=== PATIENT | female | born 1995 ===

== ENCOUNTER 2022-12-31 08:37 | Outpatient (CLI) | payer OTHER | END 2022-12-31 10:57 | disposition home or self-care (01) | LOC: PRENATAL 08:37 | PROVIDERS: ATTEND Obstetrics & Gynecology Maternal & Fetal Medicine | DX: O36.80X0 Pregnancy with inconclusive fetal viability, not applicable or unspecified (principal); Z36.82 Encounter for antenatal screening for nuchal translucency; Z36.9 Encounter for antenatal screening, unspecified; O34.80 Maternal care for other abnormalities of pelvic organs, unspecified trimester; Z3A.14 14 weeks gestation of pregnancy ==

== ENCOUNTER 2023-02-12 08:05 | Outpatient (CLI) | payer OTHER | END 2023-02-12 08:07 | disposition home or self-care (01) | LOC: PRENATAL 08:05 | PROVIDERS: ATTEND Obstetrics & Gynecology Maternal & Fetal Medicine | DX: O35.3XX0 Maternal care for (suspected) damage to fetus from viral disease in mother, not applicable or unspecified (principal); O44.00 Complete placenta previa NOS or without hemorrhage, unspecified trimester; O34.80 Maternal care for other abnormalities of pelvic organs, unspecified trimester; Z3A.20 20 weeks gestation of pregnancy ==

== ENCOUNTER 2023-04-04 08:36 | Outpatient (CLI) | payer OTHER | END 2023-04-04 08:37 | disposition home or self-care (01) | LOC: PRENATAL 08:36 | PROVIDERS: ATTEND Obstetrics & Gynecology Maternal & Fetal Medicine | DX: O26.849 Uterine size-date discrepancy, unspecified trimester (principal); O34.80 Maternal care for other abnormalities of pelvic organs, unspecified trimester; Z3A.28 28 weeks gestation of pregnancy ==

== ENCOUNTER 2023-05-02 08:42 | Outpatient (CLI) | payer OTHER | END 2023-05-02 08:43 | disposition home or self-care (01) | LOC: PRENATAL 08:42 | PROVIDERS: ATTEND Obstetrics & Gynecology Maternal & Fetal Medicine | DX: O26.849 Uterine size-date discrepancy, unspecified trimester (principal); O36.8199 Decreased fetal movements, unspecified trimester, other fetus; Z3A.32 32 weeks gestation of pregnancy ==

== ENCOUNTER 2023-06-26 10:04 | Inpatient (IN) | payer OTHER ==
[~2023-06-26] VITALS: Ht 162.6 cm; Wt 90.3 kg
[2023-06-26 11:43] LABS: PH,URINE 6.5 (5.0-8.0); URINE APPEARANCE Clear; URINE BILIRRUBIN Negative (NEGATIVE); URINE BLOOD Small; URINE COLOR Yellow; URINE GLUCOSE Negative (NEGATIVE); URINE LEUKOCYTE Negative; URINE NITRATE Negative; URINE PROTEIN Trace (NEGATIVE)
[2023-06-26 11:47] LABS: URINE BACTERIA 810.1 uL (0.0-1933); URINE EPITHELIAL CELLS 41.4 uL (0.0-38.8); URINE RBC 114.5 uL (0.0-20.8); URINE WBC 12.5 uL (0.0-23.2)
[2023-06-26 12:16] LABS: INR < 0.93; PARTIAL THROMBOPLASTIN TIME 29.3 SECONDS (22.0-34.0); PROTHROMBIN TIME 9.5 SECONDS (9.0-11.5)
[2023-06-26 12:22] LABS: HEMATOCRIT 37.1 % (36.0-45.00); HEMOGLOBIN 12.8 g/dL (12.0-15.00); MEAN CELL VOLUME 90.8 fL (80.00-100.00); MEAN CORPUSCULAR HEMOGLOBIN 31.4 pg (27.00-32.0); MEAN CORPUSCULAR HGB CONC 34.6 g/dl (32.0-36.0); PLATELET COUNT 230 K/uL (150-450); RED BLOOD COUNT 4.08 M/uL (4.00-6.00); RED CELL DISTRIBUTION WIDTH 14.1 % (11.5-14.5)
[2023-06-26] MEDS ORDERED: VITAMIN D-40010 MCG PO (12:43)
[2023-06-26] MEDS ORDERED: VITAMIN C500 M6 PO (12:43)
[2023-06-26] MEDS ORDERED: PRENATAL TABLE1 EAC1 PO (12:43)
[2023-06-26] MEDS ORDERED: ERYTHROMYCIN BASE 3.5 GM OINT...G. OP ONE (12:55)
[2023-06-26] MEDS ORDERED: OXYTOCIN 10 UNITS/ML VIAL ONE ×2 (12:56→18:31)
[2023-06-26] MEDS ORDERED: CEFAZOLIN SODIUM 1,000 MG VIAL ONE (14:05)
[2023-06-26] MEDS ORDERED: OXYTOCIN 10 UNITS/ML VIAL IV ONE (14:15)
[2023-06-26] MEDS ORDERED: CEFAZOLIN SODIUM 1,000 MG VIAL IV ONE (14:15)
[2023-06-26] MEDS ORDERED: ERYTHROMYCIN BASE 1 GM TUBE OP ONE (14:15)
[2023-06-26] MEDS ORDERED: KETOROLAC TROMETHAMINE 60 MG VIAL IM STA (17:53)
[2023-06-26] MEDS ORDERED: MEPERIDINE HCL/PF 50 MG/ML VIAL IM PRN (18:00)
[2023-06-26] MEDS ORDERED: ERYTHROMYCIN BASE 1 GM TUBE OP SCH (18:00)
[2023-06-26] MEDS ORDERED: OXYTOCIN 1,000 ML IV SCH (18:00)
[2023-06-26] MEDS ORDERED: PROMETHAZINE HCL 25 MG/ML AMPUL IM PRN (18:00)
[2023-06-26] MEDS ORDERED: CHLORHEXIDINE GLUCONATE 120 ML BOTTLE TP SCH (18:00)
[2023-06-26] MEDS ORDERED: RINGERS SOLUTION,LACTATED 1,000 ML IV SCH (18:00)
[2023-06-26] MEDS ORDERED: KETOROLAC TROMETHAMINE 60 MG VIAL IM ONE (18:29)
[2023-06-26 20:32] LABS: HEMATOCRIT 36.9 % (36.0-45.00); HEMOGLOBIN 12.6 g/dL (12.0-15.00); MEAN CELL VOLUME 89.2 fL (80.00-100.00); MEAN CORPUSCULAR HEMOGLOBIN 30.5 pg (27.00-32.0); MEAN CORPUSCULAR HGB CONC 34.2 g/dl (32.0-36.0); PLATELET COUNT 208 K/uL (150-450); RED BLOOD COUNT 4.14 M/uL (4.00-6.00)
[2023-06-27] MEDS ORDERED: OxyCODONE HCL/APAP UD (PERCOCET) PO PRN (09:00)
[2023-06-27] MEDS ORDERED: IBUprofen 600 MG TABLET PO PRN (17:30)
== END 2023-06-29 16:22 | disposition home or self-care (01) | DRG 788 ==
LOC: LDR 10:04 → O/R 10:04 → LDR 10:44 → O/R 14:24 → OB/GYN 16:37
PROVIDERS: ADMIT Obstetrics & Gynecology; ATTEND Obstetrics & Gynecology
PROC: 0UB20ZZ Excision of Bilateral Ovaries, Open Approach (ICD-10-PCS; 2023-06-26)
PROC: 4A1HXCZ Monitoring of Products of Conception, Cardiac Rate, External Approach (ICD-10-PCS; 2023-06-26)
PROC: 10D00Z1 Extraction of Products of Conception, Low, Open Approach (ICD-10-PCS; principal; 2023-06-26 13:00)
DX: O33.8 Maternal care for disproportion of other origin (principal); O34.83 Maternal care for other abnormalities of pelvic organs, third trimester; D27.1 Benign neoplasm of left ovary; D27.0 Benign neoplasm of right ovary; Z3A.39 39 weeks gestation of pregnancy; Z37.0 Single live birth; Z20.822 Contact with and (suspected) exposure to COVID-19